=== PATIENT | female | born 1985 | race Caucasian/White ===

== ENCOUNTER 2016-05-09 19:05 | Emergency (ER) | payer MEDICAID ==
[2016-05-09 19:49] VITALS: BP 129/74
[2016-05-09 21:55] LABS: Hematocrit 37.9 % (37.0-47.0); Hemoglobin 12.8 gm/dL (12.5-16.0); Mean Cell Volume 83.1 fl (78-100); Mean Corpuscular Hemoglobin 28.1 pg (27-31); Mean Corpuscular Hgb Conc 33.8 g/dl (32-36); Mean Platelet Volume 9.3 fl (6.0-9.5); Neutrophil # 8.2 K/mm3 (1.3-6.0); Neutrophil % 66.6 % (42-75.0); Platelet Count 353 K/mm3 (150-450); Red Blood Count 4.56 M/mm3 (4.2-5.4); Red Cell Distribution Width 13.2 % (11.5-14.0); White Blood Count 12.3 K/mm3 (4.0-10.5)
[2016-05-09] MEDS ORDERED: ONDANSETRON 4 MG TAB.RAPDIS ONE (22:02)
[2016-05-09 22:05] LABS: Urine Bilirubin Negative (NEGATIVE); Urine Blood Negative /ul (NEGATIVE); Urine Ketone Negative (NEGATIVE); Urine Nitrite Negative (NEGATIVE); Urine Protein Negative (NEGATIVE); Urine Specific Gravity >=1.030 SP.GR. (1.005-1.010); Urine Urobilinogen Normal (NORMAL)
[2016-05-09] MEDS: ONDANSETRON 4 MG TAB.RAPDIS PO ONE (22:05)
[2016-05-09 22:08] LABS: Albumin * 2.4 gm/dl (3.4-5.0); Anion Gap 11.4 mmol/L (6.8-13.8); BUN/Creatinine Ratio 10.7 (9.0-21.6); Bilirubin, Total 0.3 mg/dL (0.0-1.1); Carbon Dioxide 25.4 mmol/L (24-32.6); Potassium 3.8 mmol/L (3.4-4.6); Total Protein 6.9 gm/dL (6.2-8.2)
--- NOTE | 2016-05-09 22:08 | ERNOTE ---
ENT HPI Date of Service: 05/09/16 Time Seen by Provider: 05/09/16 21:09 Source: patient Exam Limitations: no limitations - Immun/Allergies/Home Medications Immunizations: IMMUNIZATION HX Immunizations Up to Date Yes History of Influenza Vaccine No Hx Pneumococcal Vaccination No Allergies/Adverse Reactions: Allergies Allergy/AdvReac Type Severity Reaction Status Date / Time penicillin G Allergy Verified 11/19/15 07:58 Home Medications: HOME MEDICATIONS Levothyroxine Sodium [Synthroid] 200 mcg PO DAILY 07/13/13 [Last Taken 05/02/14] Propranolol HCl [Inderal] 80 mg PO DAILY 07/13/13 [Last Taken 05/02/14] Cyanocobalamin (Vitamin B-12) [Vitamin B-12] 2,500 mcg SL DAILY 03/11/14 [Last Taken 05/02/14] Calcium Carbonate [Calcium] 500 mg PO DAILY 05/02/14 [Last Taken 05/02/14] Cephalexin Monohydrate [Keflex] 500 mg PO QID #40 cap 05/09/16 [Last Taken Unknown] Pnv95/Ferrous Fumarate/FA [ Caplet] 1 each PO DAILY 05/09/16 [Last Taken Unknown] - History of Present Illness Narrative: Pt. comes in with c/o fever, malaise, body aches, fatigue, sore throat, nausea and vomiting for two days. Pt. is 29 weeks and states that she feels baby moving and denies any abdominal pain. Pt. stats that she has felt fatigued for her entire . Pt. denies any Recent illness, alleviating factors or aggravating factors. Pt. denies any SOB, CP, or diarrhea. Review of Systems - Review of Systems Constitutional: Present: fever, chills, weakness, fatigue, malaise EYE: Present: no symptoms reported ENT: Present: no symptoms reported. Absent: nose congestion, nasal drainage, sore throat Respiratory: Present: no symptoms reported. Absent: cough, wheezing Cardiology: Present: no symptoms reported Gastrointestinal/Abdominal: Present: nausea, vomiting. Absent: diarrhea, abdominal pain Musculoskeletal: Present: no symptoms reported. Absent: back pain, joint pain Skin: Present: no symptoms reported. Absent: rash Neurological: Present: no symptoms reported. Absent: headache, dizziness/light- headedness, numbness, tingling All Other Systems: All systems neg except as marked - Patient's Past Medical History Patient History - Medical: Anxiety, Hypothyroidism, Migraines Patient History - Cardiac/Respiratory: Hypertension Patient History - Cancer: No Hx of Cancer Patient History - Surgical Procedures: Cholecystectomy, Other Patient History - Other: None LMP (females 10-50): LMP (Calendar): 10/01/15 - Social History Living Situations: home Abuse History: No History of abuse Psych History: Hx of Anxiety Smoking Status: Never smoker Alcohol Use: none Drug Use: none - Immunizations Immunizations Up to Date: Yes Hx Pneumococcal Vaccination: No History of Influenza Vaccine: No Physical Exam - Physical Exam General Appearance: Present: wd/wn, alert, no apparent distress Eye Exam: Normal inspection: bilateral, PERRL: bilateral, EOMI: bilateral Ears, Nose, Throat: Present: normal ENT inspection, hearing grossly normal, normal pharynx Neck: Present: normal inspection, nontender. Absent: lymphadenopathy (R), lymphadenopathy (L) Respiratory: Present: no respiratory distress, normal breath sounds, no accessory muscle use, chest nontender, lungs clear Cardiovascular/Chest: Present: regular rate, rhythm, no murmur, normal peripheral pulses Gastrointestinal/Abdominal: Present: normal bowel sounds, nontender, nondistended, soft, no organomegaly Back Exam: Present: normal inspection, normal range of motion, no CVA tenderness , no vertebral tenderness Extremity Exam: Present: normal inspection, non-tender, no edema, normal range of motion Neurological Exam: Present: alert, oriented, normal mood/affect, no motor/ sensory deficits Skin Exam: Present: normal color, warm/dry ED Progress - Results and Orders Patient's Lab Results:: I have reviewed the patient's lab results. - Vital Signs Patient's Vital Signs:: I have reviewed the patient's vital signs. Vital Signs: Vital Signs 05/09/16 19:45 Temperature 36.8 C Pulse Rate 90 Respiratory 18 Rate Blood Pressure 129/74 O2 Sat by Pulse 96 Oximetry - Progress/Reassessment Chief Complaint: Sore Throat Progress:: Unchanged Departure Clinical Impression: Gastroenteritis, Acute UTI - Departure Disposition: Home self-care Condition: Good Instructions: Viral Gastroenteritis, Adult, [id number], and Urinary Tract Infection Additional Instructions: Please follow up with primary provider in 2-3 days Referrals: Sandy Dubon FNP [Primary Care Provider] - Prescriptions: Cephalexin Monohydrate [Keflex] 500 mg PO QID #40 cap
[2016-05-09 22:37] LABS: Urine Appearance Slightly Cloudy; Urine Bacteria 1+; Urine Color Yellow; Urine RBC None Seen /hpf (0-5)
[2016-05-09] MEDS ORDERED: CEPHALEXIN MONOHYDRATE 250 MG CAPSULE ONE (23:10)
[2016-05-09] MEDS: CEPHALEXIN MONOHYDRATE 250 MG CAPSULE PO ONE (23:17)
== END 2016-05-09 23:21 | disposition home or self-care (01) ==
LOC: ER 19:05
DX: K52.9 Noninfective gastroenteritis and colitis, unspecified (principal); N39.0 Urinary tract infection, site not specified; O26.893 Other specified pregnancy related conditions, third trimester; Z3A.29 29 weeks gestation of pregnancy; Z90.49 Acquired absence of other specified parts of digestive tract; E03.9 Hypothyroidism, unspecified

== ENCOUNTER 2016-06-21 06:00 | Emergency (ER) | payer MEDICAID ==
[2016-06-21 06:24] VITALS: BP 151/105
--- OUTSIDE RECORDS SUMMARY | 2016-06-21 07:04 | XMS REPORT | Continuity of Care Document ---
:1985 Author Organization [facility] ([facility]) [place] [address] Phone [phone] Care Team Providers Name Role Phone Provider, No-Primary Care Primary Care Provider Unavailable Source Comments This disclosure is being made pursuant to the Care Everywhere program, applicable federal and state laws, and may not contain all informaitonavailable regarding this patient.[facility] ([facility]) Active Allergies and Adverse Reactions Not on File Current Medications Not on file Active Problems Not on file Social History Tobacco Use Types Packs/Day Years Used Date Never Assessed Plan of Care Health Maintenance Due Date Last Done Comments Hepatitis B Vaccine (1 of 3 - Primary Series) 1985 Tdap Vaccine 1994 Lipid Disorder Screening 2001 MMR Vaccine 2001 Td Vaccine 2001 Varicella Vaccine (1 of 2 - Adult - No Evidence of 2001 Immunity) Cervical Cancer Screening 2013 Influenza Vaccine: Seasonal (#1) 11/08/2015 Results from Last 3 Months Not on file
--- OUTSIDE RECORDS SUMMARY | 2016-06-21 07:05 | XMS REPORT | CCD ---
:1985 Author Organization [facility] Care Team Providers Name Role Phone Self, Referral Referring Provider Unavailable Jose Noel Consulting Provider [phone] Ramírez Cortez Primary Care Provider [phone] Results ENDOCRINE CHEMISTRIES Most recent to oldest [Reference Range]: 1 S-TSH [0.35-4.94 International Units/ml] 1.53 International Units/ml (11/06/2013 10:31:31)
--- NOTE | 2016-06-21 07:06 | ERNOTE ---
ENT HPI Presenting Symptoms: other - nasal congestion Time Seen by Provider: 06/21/16 06:48 Source: patient Exam Limitations: no limitations - Immun/Allergies/Home Medications Immunizations: IMMUNIZATION HX Immunizations Up to Date Yes History of Influenza Vaccine No Hx Pneumococcal Vaccination No Allergies/Adverse Reactions: Allergies Allergy/AdvReac Type Severity Reaction Status Date / Time penicillin G Allergy Verified 06/21/16 06:29 Home Medications: HOME MEDICATIONS Levothyroxine Sodium [Synthroid] 200 mcg PO DAILY 07/13/13 [Last Taken 05/02/14] Propranolol HCl [Inderal] 80 mg PO DAILY 07/13/13 [Last Taken 05/02/14] Cyanocobalamin (Vitamin B-12) [Vitamin B-12] 2,500 mcg SL DAILY 03/11/14 [Last Taken 05/02/14] Calcium Carbonate [Calcium] 500 mg PO DAILY 05/02/14 [Last Taken 05/02/14] Pnv95/Ferrous Fumarate/FA [ Caplet] 1 each PO DAILY 05/09/16 [Last Taken Unknown] - History of Present Illness Narrative: 2 days ago pt began to have nasal / sinus congestion, this increased to nasal discharge and this morning she had an elevated temp of 99.5 F. Pt is 36 weeks Severity: Present: mild ENT Location: Present: nose, facial Prearrival Treatment: Present: no prearrival treatment Associated Symptoms - ENT: Reports: sore throat Review of Systems - Review of Systems Constitutional: Present: fatigue. Absent: chills EYE: Present: no symptoms reported ENT: Present: See HPI Respiratory: Present: See HPI, cough Cardiology: Present: no symptoms reported Gastrointestinal/Abdominal: Present: no symptoms reported Genitourinary: Present: no symptoms reported Musculoskeletal: Present: no symptoms reported Skin: Present: no symptoms reported Neurological: Present: no symptoms reported Endocrine: Present: no symptoms reported Hematologic/Lymphatic: Present: no symptoms reported Psych: Present: no symptoms reported - Patient's Past Medical History Patient History - Medical: Anxiety, Hypothyroidism, Migraines Patient History - Cardiac/Respiratory: Hypertension Patient History - Cancer: No Hx of Cancer Patient History - Surgical Procedures: Cholecystectomy, Other Patient History - Other: None LMP (Calendar): 10/01/15 - Social History Living Situations: home Abuse History: No History of abuse Psych History: Hx of Anxiety Alcohol Use: none Drug Use: none - Immunizations Immunizations Up to Date: Yes Hx Pneumococcal Vaccination: No History of Influenza Vaccine: No Physical Exam - Physical Exam General Appearance: Present: wd/wn, alert, no apparent distress Eye Exam: Normal inspection: bilateral, PERRL: bilateral Ears, Nose, Throat: Present: nasal congestion - with mild erythema and minimal drainage present, pharyngeal erythema - minimal Neck: Present: normal inspection, nontender Respiratory: Present: no respiratory distress, normal breath sounds, lungs clear Cardiovascular/Chest: Present: regular rate, rhythm, no murmur Back Exam: Present: normal inspection, normal range of motion Extremity Exam: Present: normal inspection Neurological Exam: Present: alert, oriented, normal mood/affect Skin Exam: Present: normal color, warm/dry Lymphatic Exam: Present: no adenopathy ED Progress - Results and Orders Patient's Lab Results:: I have reviewed the patient's lab results. Results and Orders: Laboratory Tests 06/21/16 06:22 Group A Strep Rapid Negative - Vital Signs Patient's Vital Signs:: I have reviewed the patient's vital signs. Vital Signs: Vital Signs 06/21/16 06:18 Temperature 36.4 C L Pulse Rate 82 Respiratory 14 Rate Blood Pressure 151/105 O2 Sat by Pulse 97 Oximetry - Progress/Reassessment Chief Complaint: Sore Throat Progress:: Unchanged Departure Clinical Impression: Upper respiratory infection Qualifiers: URI type: acute nasopharyngitis (common cold) Qualified Code(s): J00 - Acute nasopharyngitis [common cold] - Departure Disposition: Home Follow Up Needed Condition: Good Instructions: Upper Respiratory Infection, Adult, [id number] Additional Instructions: Mucinex 600 mg twice a day may help. See your OB or your primary care doctor if not improving. Referrals: Sandy Dubon FNP [Primary Care Provider] -
--- OUTSIDE RECORDS SUMMARY | 2016-06-21 07:06 | XMS REPORT | CCD ---
:1985 Author Organization [facility] Care Team Providers Name Role Phone Jose Noel Consulting Provider [phone] Ramírez Cortez Primary Care Provider [phone] Vital Signs Most recent to oldest [Reference Range]: 1 Systolic Blood Pressure 145 mm hg (09/09/2013 09:04:00) Diastolic Blood Pressure [61-99 mm hg] 99 mm hg (09/09/2013 09:04:00) Height 160 cm (09/09/2013 09:04:00) Weight 145.909 kg (09/09/2013 09:04:00)
== END 2016-06-21 07:16 | disposition home or self-care (01) ==
LOC: ER 06:00
DX: J00 Acute nasopharyngitis [common cold] (principal); Z33.1 Pregnant state, incidental; Z3A.36 36 weeks gestation of pregnancy; E03.9 Hypothyroidism, unspecified; I10 Essential (primary) hypertension

== ENCOUNTER 2016-07-14 00:06 | Inpatient (IN) | payer MEDICAID ==
--- OUTSIDE RECORDS SUMMARY | 2016-07-14 00:10 | XMS REPORT | Continuity of Care Document ---
:1985 Author Organization [facility] ([facility]) Address [place] [address] Phone [phone] Care Team Providers Name Role Phone Provider, No-Primary Care Primary Care Provider Unavailable Source Comments This disclosure is being made pursuant to the Care Everywhere program, applicable federal and state laws, and may not contain all informaitonavailable regarding this patient.[facility] ([facility]) Active Allergies and Adverse Reactions Not on [...]
--- OUTSIDE RECORDS SUMMARY | 2016-07-14 00:10 | XMS REPORT | CCD ---
:1985 Author Organization [facility] Care Team Providers Name Role Phone Self, Referral Referring Provider Unavailable Jose Noel Consulting Provider [phone] Ramírez Cortez Primary Care Provider [phone] Results ENDOCRINE CHEMISTRIES Most recent to oldest [Reference Range]: 1 S-TSH [0.35-4.94 International Units/ml] 1.53 International Units/ml (11/06/2013 10:31:31)
--- OUTSIDE RECORDS SUMMARY | 2016-07-14 00:11 | XMS REPORT | CCD ---
:1985 Author Organization [facility] Care Team Providers Name Role Phone Jose Noel Consulting Provider [phone] Ramírez Cortez Primary Care Provider [phone] Vital Signs Most recent to oldest [Reference Range]: 1 Systolic Blood Pressure 145 mm hg (09/09/2013 09:04:00) Diastolic Blood Pressure [61-99 mm hg] 99 mm hg (09/09/2013 09:04:00) Height 160 cm (09/09/2013 09:04:00) Weight 145.909 kg (09/09/2013 09:04:00)
[2016-07-14] MEDS ORDERED: OXYTOCIN/DEXTROSE 5%-WATER 30 UNITS/500 ML BAG IV ONE (00:33)
[2016-07-14] MEDS ORDERED: ONDANSETRON HCL/PF 2 MG/ML VIAL IV PRN ×2 (00:33→17:22)
[2016-07-14] MEDS ORDERED: BUTORPHANOL TARTRATE 2 MG/ML VIAL IV PRN (00:33)
[2016-07-14] MEDS ORDERED: RINGERS SOLUTION,LACTATED 1,000 ML IV ONE ×2 (00:33→15:50)
[2016-07-14] MEDS ORDERED: LIDOCAINE HCL 50 ML VIAL PERI PRN (00:33)
[2016-07-14] MEDS: CLINDAMYCIN PHOSPHATE 900 MG in DEXTROSE 5 % IN WATER 100 ML IV SCH ×6 (01:45→15:46)
[2016-07-14] MEDS: RINGERS SOLUTION,LACTATED 1,000 ML IV PRN ×2 (01:46→09:14)
--- NOTE | 2016-07-14 09:07 | PN ---
Progess Note - Interim Narrative: 07/14/16 09:04 Subjective-complaining of back pain, pressure, uncomfortable Objective- SVE- /-3, amniotomy attempted and FSE applied due to difficulty monitoring FHTs- 150s, moderate variability, occasional decelerations, positive accelerations [employer]- irregular Assessment and plan- Labor-induction GBS status-positive CHTN-BP's mildly elevated Continue current plan of care.
[2016-07-14] MEDS ORDERED: NALOXONE HCL 1 MG/1 ML SYRG IV PRN (10:26)
[2016-07-14] MEDS ORDERED: BUPIVACAINE HCL/PF 30 ML VIAL EP ONE (10:26)
[2016-07-14] MEDS ORDERED: BUPIVACAINE HCL/0.9 % NACL/PF 250 ML EP PRN (10:26)
[2016-07-14] MEDS: DEXTROSE 5%-LACTATED RINGERS 1,000 ML IV PRN ×2 (10:32→13:22)
--- NOTE | 2016-07-14 10:57 | OR ---
Anesthesia Procedure Note - Anesthesia Procedure Note Date of Service: 07/14/16 Narrative: Vital Signs - Last Taken Temp 36.4 C L 07/14/16 10:28 Pulse 83 07/14/16 10:28 Resp 20 07/14/16 10:28 BP 157/90 07/14/16 10:28 Pulse Ox 98 07/14/16 10:28 07/14/16 10:55 ANESTHESIA PROCEDURE NOTE Date of Procedure: 07/14/2016. Time of procedure: 1030. Performed by: Vic Winslow CRNA Legal Process Specialist: None. Preprocedure diagnosis: Active labor. Post procedure diagnosis: Same. Procedure: Insertion of labor epidural. Indications: The patient is a 31 -year-old female in active labor requesting labor epidural for pain management. Findings: See below. Details of the procedure: The patient was placed in a sitting position. DuraPrep as well as Betadine swabs 3 was applied to the patient's back. Patient was then draped in a sterile fashion. Lidocaine 1% was infiltrated to the skin and subcutaneous tissues at the level of the L3 4 interspace. The epidural space was identified using a 18-gauge Tuohy needle with loss-of- resistance technique. Epidural catheter was inserted to a depth of 14 centimeters at skin. Negative test dose was elicited using 3 mL of 1.5% preservative-free lidocaine plus epinephrine 1 200,000. The epidural catheter was then taped and secured in place. A loading dose of 8 mL of 0.25% preservative-free bupivacaine was administered to the epidural catheter after negative aspiration for blood and CSF. EBL: Minimal. Fluids: N/A. Specimen: N/A. Post procedure condition: The patient tolerated the procedure well. No complications were noted. Thank you for this consultation. Vic Winslow CRNA
--- NOTE | 2016-07-14 12:22 | PN ---
Progess Note - Interim Narrative: 07/14/16 12:16 Subjective-patient is comfortable after epidural, denies headache, blurry vision , epigastric pain Objective- SVE- 4/80/-3, bloody show noted, internal monitors in place FHTs- 140s, periods of minimal variability and periods of moderate variability, an episode of repetitive late decelerations that improved after turning off the Pitocin and a fluid bolus and position change, occasional variable deceleration [place]- every 4 minutes on 6 milliunits of Pitocin and irregular off of Pitocin Assessment and plan- Labor-induction due to chronic hypertension GBS status-positive on clindamycin We discussed that her baby is not tolerating labor well, and she is not yet in labor, and without Pitocin and contractions she is unlikely to make cervical change, but if we cannot get her talat enough to make cervical change due to intolerance then the plan would be to proceed with section. Patient desires permanent sterilization so if patient needs a section we would perform this at the same time. Pt states good understanding. Continue current plan of care.
[2016-07-14] MEDS ORDERED: ACETAMINOPHEN 500 MG TABLET PO ONE (14:42)
--- NOTE | 2016-07-14 15:06 | PN ---
Progess Note - Interim Narrative: 07/14/16 15:01 Cervix unchanged. No fluid noted Intermittent lates, episodes of minimal variablility otherwise mostly moderate variability, no obvious accelerations, rare variable decels Contractions now every 3 minutes apart on 6 miliunits of pitocin I discussed status with mom and will continue to monitor closely. OR crew updated for possible CD.
[2016-07-14] MEDS ORDERED: GENTAMICIN SULFATE IV ONE ×2 (15:31)
[2016-07-14] MEDS ORDERED: WATER IV ONE ×2 (15:31)
[2016-07-14] MEDS ORDERED: CLINDAMYCIN PHOSPHATE 900 MG in DEXTROSE 5 % IN WATER 100 ML IV ONE ×2 (15:31)
[2016-07-14] MEDS ORDERED: DEXTROSE 5% IV ONE ×2 (15:31)
[2016-07-14] MEDS ORDERED: RINGERS SOLUTION,LACTATED 1,000 ML IV PRN (15:31)
[2016-07-14] MEDS ORDERED: OXYTOCIN 20 UNITS in RINGERS SOLUTION,LACTATED 1,000 ML IV ONE (15:31)
--- NOTE | 2016-07-14 15:53 | OR ---
Operative Report - Dictated Report Narrative: Operative report: 07/14/2016 Preoperative diagnosis: 39.0 weeks, chronic hypertension, hypothyroid, morbid obesity, anxiety, depression, HSV, nonreassuring heart tones, intolerance to labor, remote from delivery, desires permanent sterilization Postoperative diagnosis: Same Procedure: Primary low-transverse section with bilateral salpingectomies Surgeon: Leonie Mcginnis D.O. Gas Main Fitter Helper: OR staff Anesthesia: epidural IV fluids: 1200 Milliliters Urine output: 225 Milliliters EBL: 500 Milliliters Findings: female infant, no fluid, meconium stains on placenta and baby, thin cord, apgars of 8 and 9, moses of 5 lbs 4.7oz or 2403 grams, nl uterus, tubes, ovaries with a left paratubal cyst, delivered at 1619 Drains: Cardoso catheter to gravity Pathology: placenta, right and left fallopian tubes with left paratubal cyst Complications: None Condition: Stable The patient was taken to the operating room with IV fluids running and Cardoso catheter in place. She was placed in the dorsal supine position with a leftward tilt. She was prepped and draped in the normal sterile fashion. A Pfannenstiel skin incision was made with the scalpel 2 cm above the pubic symphysis. The subcutaneous tissue was dissected down to the fascia. The fascia was incised in the midline and extended laterally. The superior aspect of the fascia was grasped with Karl clamps and the rectus muscles were dissected off the fascia using Renteria scissors and blunt dissection. In a similar fashion, the inferior aspect of the fascia was grasped and the rectus muscles dissected off. The peritoneum was then entered and extended with good visualization of the bowel and bladder. The uterine incision was made in a low-transverse fashion using the scalpel. It was extended laterally in a blunt manner. The was found to be cephalic. The was then delivered atraumatically. The cord was clamped and cut. The was handed off to the waiting lead systems analyst. Cord blood was then collected. The placenta was then delivered spontaneously. The uterus was cleared of all clots and debris. Uterine incision was reapproximated using 0 Vicryl in a running locked fashion. A second layer of 0 Vicryl was used to imbricate the uterine incision. Hemostasis was obtained. Attention was then turned to the fallopian tubes. The left tube was grasped and electrocautery was used to sequentially cauterize and cut and removed along with a 4cm paratubal cyst. The pedicles were inspected and found to be hemostatic. The fallopian tube reminant was cauterized again. This was all repeated on the oposite side. Tubes were then sent to pathology. The peritoneum was then reapproximated using 3-0 Monocryl. The rectus muscles were inspected, cautery was used to obtain hemostasis. The fascia was then reapproximated with 0 Vicryl. The subcutaneous tissue was then irrigated. Bovie cautery was used to obtain hemostasis. The subcutaneous tissue was then reapproximated using 3-0 Monocryl. The skin was closed in a subcuticular fashion using 4-0 Monocryl. The incision was found to be hemostatic. Benzoin and Steri-Strips were then applied. Telfa and ABDs bandage was then placed. The patient tolerated the procedure well. Sponge, lap, needle, and instrument counts were correct throughout the entire procedure. The patient was taken to the recovery room in stable condition. History for MU Definition: * The number of deliveries resulting in a live the patient experienced prior to current hospitalization * The previous delivery of live twins or any live multiple gestation is considered one live event. *If primagravida or nulliparous is documented select zero for the number of previous live births. Live Events: 1
[2016-07-14] MEDS ORDERED: oxyCODONE HCL/ACETAMINOPHEN 1 TAB TABLET PO PRN (17:22)
[2016-07-14] MEDS ORDERED: BISACODYL 10 MG SUPP.RECT RC PRN (17:22)
[2016-07-14] MEDS ORDERED: SIMETHICONE 80 MG TAB.CHEW PO PRN (17:22)
[2016-07-14] MEDS ORDERED: KETOROLAC TROMETHAMINE 30 MG/ML VIAL IV PRN (17:22)
[2016-07-14] MEDS ORDERED: IBUPROFEN 800 MG TABLET PO PRN (17:22)
[2016-07-14] MEDS ORDERED: SENNOSIDES 8.6 MG TABLET PO PRN (17:22)
[2016-07-14] MEDS ORDERED: PROMETHAZINE HCL 12.5 MG in DEXTROSE 5 % IN WATER 50 ML IV PRN ×2 (17:37)
[2016-07-14] MEDS ORDERED: NALOXONE HCL 0.4 MG/ML VIAL IV PRN (17:37)
[2016-07-14] MEDS ORDERED: HYDROmorphone HCL 2 MG/ML VIAL IV ONE (17:37)
[2016-07-14] MEDS ORDERED: diphenhydrAMINE HCL 50 MG/ML VIAL IV PRN (17:37)
[2016-07-14] MEDS: oxyCODONE HCL/ACETAMINOPHEN 1 TAB TABLET PO PRN (21:43)
[2016-07-14] MEDS: DOCUSATE SODIUM 100 MG CAPSULE PO SCH (21:43)
[2016-07-14] MEDS: ENOXAPARIN SODIUM 40 MG/0.4 ML SYRG SC SCH (21:45)
[2016-07-15] MEDS: oxyCODONE HCL/ACETAMINOPHEN 1 TAB TABLET PO PRN ×7 (02:34→21:58)
[2016-07-15] MEDS ORDERED: LEVOTHYROXINE SODIUM 100 MCG TABLET PO SCH (07:00)
[2016-07-15] MEDS: PROPRANOLOL HCL 80 MG CAPSULE.SA PO SCH (08:48)
[2016-07-15] MEDS ORDERED: PROPRANOLOL HCL 80 MG CAPSULE.SA PO SCH (09:00)
[2016-07-15] MEDS: LEVOTHYROXINE SODIUM 100 MCG TABLET PO SCH (09:56)
[2016-07-15] MEDS: DOCUSATE SODIUM 100 MG CAPSULE PO SCH ×2 (09:57→21:31)
--- NOTE | 2016-07-15 14:55 | PN ---
Subjective - Date and Time Seen Date: 07/15/16 Time: 14:54 Objective - Vitals Vitals: Last Vital Signs Temp 36.5 C 07/15/16 14:01 Pulse 82 07/15/16 14:01 Resp 16 07/15/16 14:01 BP 122/58 07/15/16 14:01 Pulse Ox 94 07/15/16 14:01 Patient denies complaints. Tolerating regular diet. Ambulating without difficulty. Pain well controlled. Lochia wnl. Abdomen - soft, appropriately tender Incision - clean, dry, intact Uterus - firm, at umbilicus -1 No calf tenderness Impression: Post op day #1 s/p primary section. Plan: Continue routine post-operative/ care Cauti Physician Documentation - Urinary Catheter Management Urethral (Cardoso) Date of Insertion: 07/14/16 Time of Insertion: 11:00 Date of Removal: 07/15/16 Time of Removal: 04:40
[2016-07-15] MEDS: ENOXAPARIN SODIUM 40 MG/0.4 ML SYRG SC SCH (21:31)
[2016-07-16] MEDS: oxyCODONE HCL/ACETAMINOPHEN 1 TAB TABLET PO PRN ×5 (01:03→20:52)
[2016-07-16] MEDS: LEVOTHYROXINE SODIUM 100 MCG TABLET PO SCH (06:44)
[2016-07-16] MEDS: PROPRANOLOL HCL 80 MG CAPSULE.SA PO SCH (10:50)
[2016-07-16] MEDS: DOCUSATE SODIUM 100 MG CAPSULE PO SCH ×2 (10:50→20:52)
--- NOTE | 2016-07-16 13:36 | PN ---
Subjective - Date and Time Seen Date: 07/16/16 Time: 13:36 Objective - Vitals Vitals: Last Vital Signs Temp 36.6 C 07/16/16 10:53 Pulse 90 07/16/16 10:53 Resp 18 07/16/16 10:53 BP 119/64 07/16/16 10:53 Pulse Ox 95 07/16/16 10:53 Patient denies complaints. Ambulating well. Tolerating regular diet. Pain well controlled. Lochia wnl. Abdomen - soft, appropriately tender Incision - clean, dry, intact Uterus - firm, at umbilicus -2 No calf tenderness Impression: Post op day #2 s/p primary section. Plan: Continue routine post-operative/ care Cauti Physician Documentation - Urinary Catheter Management Urethral (Cardoso) Date of Insertion: 07/14/16 Time of Insertion: 11:00 Date of Removal: 07/15/16 Time of Removal: 04:40
[2016-07-16] MEDS: ENOXAPARIN SODIUM 40 MG/0.4 ML SYRG SC SCH (22:25)
[2016-07-17] MEDS: oxyCODONE HCL/ACETAMINOPHEN 1 TAB TABLET PO PRN ×2 (00:20→06:37)
[2016-07-17] MEDS: LEVOTHYROXINE SODIUM 100 MCG TABLET PO SCH (06:38)
[2016-07-17 08:52] VITALS: BP 126/86
[2016-07-17] MEDS: PROPRANOLOL HCL 80 MG CAPSULE.SA PO SCH (08:54)
[2016-07-17] MEDS: DOCUSATE SODIUM 100 MG CAPSULE PO SCH (08:54)
--- NOTE | 2016-07-17 09:00 | PN ---
Subjective - Date and Time Seen Date: 07/17/16 Time: 08:57 Objective - Vitals Vitals: Last Vital Signs Temp 37.0 C 07/17/16 06:40 Pulse 85 07/17/16 08:54 Resp 16 07/17/16 06:40 BP 126/86 07/17/16 08:54 Pulse Ox 98 07/17/16 06:40 Patient denies complaints. Ambulating without difficulty. Tolerating regular diet. Pain well controlled. Lochia wnl. Abdomen - soft, appropriately tender Incision - clean, dry, intact Uterus - firm, at umbilicus -3 No calf tenderness Impression: Post op day #3 s/p primary section. Hypothyroid - stable , Chronic hypertension-stable, Depression/anxiety-stable, Morbid obesity-stable Plan: Routine discharge instructions. Follow-up with primary care physician for continued treatment of hypothyroidism, chronic hypertension, depression/ anxiety. Cauti Physician Documentation - Urinary Catheter Management Urethral (Cardoso) Date of Insertion: 07/14/16 Time of Insertion: 11:00 Date of Removal: 07/15/16 Time of Removal: 04:40
== END 2016-07-17 16:00 | disposition home or self-care (01) | DRG 765 ==
LOC: OBSVTOIN 00:06 → OB 00:06
PROVIDERS: ADMIT Obstetrics & Gynecology Gynecologic Oncology; ATTEND Obstetrics & Gynecology Gynecologic Oncology
PROC: 0UB77ZZ Excision of Bilateral Fallopian Tubes, Via Natural or Artificial Opening (ICD-10-PCS; 2016-07-14)
PROC: 3E033VJ Introduction of Other Hormone into Peripheral Vein, Percutaneous Approach (ICD-10-PCS; 2016-07-14)
PROC: 4A1H7CZ Monitoring of Products of Conception, Cardiac Rate, Via Natural or Artificial Opening (ICD-10-PCS; 2016-07-14)
PROC: 10H073Z Insertion of Monitoring Electrode into Products of Conception, Via Natural or Artificial Opening (ICD-10-PCS; 2016-07-14)
PROC: 10D00Z1 Extraction of Products of Conception, Low, Open Approach (ICD-10-PCS; principal; 2016-07-14 15:00)
DX: O76 Abnormality in fetal heart rate and rhythm complicating labor and delivery (principal); O10.02 Pre-existing essential hypertension complicating childbirth; Z68.43 Body mass index [BMI] 50.0-59.9, adult; O99.824 Streptococcus B carrier state complicating childbirth; O99.284 Endocrine, nutritional and metabolic diseases complicating childbirth; E03.9 Hypothyroidism, unspecified; O99.214 Obesity complicating childbirth; E66.01 Morbid (severe) obesity due to excess calories; Z3A.39 39 weeks gestation of pregnancy; Z37.0 Single live birth

== ENCOUNTER 2017-02-04 14:15 | Emergency (ER) | payer MEDICAID ==
[2017-02-04 14:48] LABS: Hematocrit 39.8 % (37.0-47.0); Hemoglobin 13.4 gm/dL (12.5-16.0); Mean Cell Volume 82.7 fl (78-100); Mean Corpuscular Hemoglobin 27.9 pg (27-31); Mean Corpuscular Hgb Conc 33.7 g/dl (32-36); Mean Platelet Volume 8.6 fl (6.0-9.5); Neutrophil % 49.9 % (42-75.0); Platelet Count 383 K/mm3 (150-450); Red Blood Count 4.81 M/mm3 (4.2-5.4); Red Cell Distribution Width 13.5 % (11.5-14.0); White Blood Count 7.9 K/mm3 (4.0-10.5)
[2017-02-04 15:11] LABS: Albumin * 3.2 gm/dl (3.4-5.0); Anion Gap 12.9 mmol/L (6.8-13.8); BUN/Creatinine Ratio 22.4 (9.0-21.6); Bilirubin, Total 0.5 mg/dL (0.0-1.1); Ca. Corrected For Albumin 9.1 mg/dL (8.4-10.2); Calcium * 8.8 mg/dL (7.9-10.9); Carbon Dioxide 25.2 mmol/L (24-32.6); Potassium 4.1 mmol/L (3.4-4.6); Total Protein 7.8 gm/dL (6.2-8.2)
[2017-02-04 15:50] VITALS: BP 163/100
--- NOTE | 2017-02-04 16:05 | ERNOTE ---
Date of Service: 02/04/17 Time Seen by Provider: 02/04/17 14:20 Stated Complaint: dizzy, pain while coughing Presenting Symptoms:: cough, other - facial pain Source: patient Exam Limitations: no limitations Immunizations: IMMUNIZATION HX Immunizations Up to Date Yes History of Influenza Vaccine No Hx Pneumococcal Vaccination No Allergies/Adverse Reactions: Allergies penicillin G Allergy (Verified 02/04/17 14:23) Home Medications: HOME MEDICATIONS Levothyroxine Sodium [Synthroid] 200 mcg PO DAILY 07/13/13 [Last Taken 07/13/16 09:00] Cyanocobalamin (Vitamin B-12) [Vitamin B-12] 2,500 mcg SL DAILY 03/11/14 [Last Taken 05/02/14] Calcium Carbonate [Calcium] 500 mg PO DAILY 05/02/14 [Last Taken 07/13/16 09:00] Pnv95/Iron Fum/Folic Acid [ Caplet] 1 each PO DAILY 05/09/16 [Last Taken 07/13/16 09:00] Propranolol HCl [Inderal Xl] 80 mg PO DAILY 07/14/16 [Last Taken Unknown] Azithromycin [Zithromax] 500 mg PO NOW #6 tab 02/04/17 [Last Taken Unknown] Benzonatate [Tessalon Perle] 100 mg PO TID PRN #12 capsule 02/04/17 [Last Taken Unknown] - History of Present Ilness Narrative: Patient presents to the ED with cough and right facial pain. SHe has been sick for a week. She has had productive cough, sinus congestion and right sinus pain. She initially had one of her migraines with this but now it is her right sinus area hurting. Chills and feeling feverish. CP with cough only it is in her ribs bilaterally. No focal N/T/W> Has not seen anyone else for this. Right ear pain and mild ST. No clear sick contacts. Timing: constant, getting worse Severity: moderate Frequency/Possible Cause: Reports: occasional episodes Modifying Factors - Improves: Reports: nothing Modifying Factors - Worsens: Reports: nothing Associated Symptoms: Reports: cough, wheezing, nasal congestion, earache Prior Treatment: Denies: recently seen Review of Systems - Review of Systems Constitutional: Present: chills EYE: Absent: eye discharge ENT: Present: ear pain, nose congestion, nasal drainage, sore throat Respiratory: Present: cough Cardiology: Present: See HPI, other - CP with cough only Gastrointestinal/Abdominal: Absent: abdominal pain Musculoskeletal: Present: See HPI Neurological: Absent: weakness - Patient's Past Medical History Patient History - Medical: Anxiety, Hypothyroidism, Migraines Patient History - Cardiac/Respiratory: Hypertension Patient History - Cancer: No Hx of Cancer Patient History - Surgical Procedures: Cholecystectomy, Other Patient History - Other: None - Social History Abuse History: No History of abuse Psych History: Hx of Anxiety Smoking Status: Never smoker Have you smoked in the past 12 months: No - Immunizations Immunizations Up to Date: Yes Hx Pneumococcal Vaccination: No History of Influenza Vaccine: No Physical Exam - Physical Exam General Appearance: Present: alert, no apparent distress, other - speaking in full sentences, frequent cough. Non-toxic, no distress. Head Exam: Present: normal inspection, no evidence of injury Eye Exam: Normal inspection: bilateral, PERRL: bilateral Ears, Nose, Throat: Present: abnormal TM (R), nasal congestion, sinus pain/ drainage, pharyngeal erythema, other - Sinus congestion with significant tendenress to percussion right maxillary and frontal sinus. Clinical sinusitis. Mild right TM erythema. 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 Absent: pharyngeal swelling, tonsillar exudate, tonsillar swelling, dry mucous membranes Neck: Present: normal inspection, nontender, supple, other - no miningeal signs Respiratory: Present: no respiratory distress, no accessory muscle use, chest tenderness, other - there are persistent tubular breath sounds left base. No wheezing. 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 Absent: motor weakness Skin Exam: Present: normal color, warm/dry. Absent: skin rash ED Progress - Results and Orders Patient's Lab Results:: I have reviewed the patient's lab results. - Vital Signs Patient's Vital Signs:: I have reviewed the patient's vital signs. Vital Signs: Vital Signs 02/04/17 14:20 Temperature 36.9 C Pulse Rate 90 Respiratory 14 Rate Blood Pressure 151/97 O2 Sat by Pulse 96 Oximetry - X-Ray X-Ray #1 X-Ray: chest Interpretation: Interp. by me X-ray Comments: Not being read in real time by radiology. Mild haziness LLL, no other acute process noted - Progress/Reassessment Chief Complaint: Upper Respiratory Symptoms Progress Note-Subjective: 02/04/17 16:03 I will treat the patient with ABx given the cough and persistent LLL tubular BS on exam with the haziness on CXR. Also she has sinusitis. Nothing to suggest sepsis, toxicity, hypoxia or distress. She is stable for outpatient management. I discussed warning signs and reasons to return as well as the need for close f/u. Departure Clinical Impression: Sinusitis, Cough - Departure Disposition: Home self-care Condition: Stable Instructions: Cough, Adult, [id number] Additional Instructions: Rest. Fluids. Keep your appointment Sunday with your doctor. Medications as directed. Return for fever, trouble breathing, fever or if your condition worsens or changes in any way. Referrals: Sandy Dubon FNP [Primary Care Provider] - Prescriptions: Azithromycin [Zithromax] 500 mg PO NOW #6 tab Benzonatate [Tessalon Perle] 100 mg PO TID PRN #12 capsule PRN Reason: Cough
== END 2017-02-04 15:56 | disposition home or self-care (01) ==
LOC: ER 14:15
DX: J32.9 Chronic sinusitis, unspecified (principal); R05 Cough; E03.9 Hypothyroidism, unspecified; I10 Essential (primary) hypertension; F41.9 Anxiety disorder, unspecified